=== PATIENT | female | born 1985 | race Caucasian/White ===

== ENCOUNTER 2023-11-26 05:53 | Day surgery (SDC) | payer OTHER ==
[2023-11-25 09:56] VITALS: BMI 31.4
[2023-11-26] MEDS ORDERED: Midazolam HCl 2 mg/2 ml Vial ONE (06:55)
[2023-11-26] MEDS ORDERED: PROPOFOL 60 ML ONE (06:55)
== END 2023-11-26 08:30 | disposition home or self-care (01) ==
LOC: CSHSDC 05:53
PROVIDERS: ATTEND Internal Medicine Gastroenterology
PROC: 0DJD8ZZ Inspection of Lower Intestinal Tract, Via Natural or Artificial Opening Endoscopic (ICD-10-PCS; principal; 2023-11-26)
DX: K64.9 Unspecified hemorrhoids (principal); K92.1 Melena; R19.7 Diarrhea, unspecified; I10 Essential (primary) hypertension; E66.9 Obesity, unspecified; Z68.31 Body mass index [BMI] 31.0-31.9, adult; Z88.5 Allergy status to narcotic agent; Z98.84 Bariatric surgery status
CPT/HCPCS: J2250; J2704

== ENCOUNTER 2025-04-20 08:03 | Outpatient (CLI) | payer OTHER | END 2025-04-20 08:04 | disposition home or self-care (01) | LOC: CSHWCC 08:03 | PROVIDERS: ATTEND Nurse Practitioner Family | DX: T81.328D Disruption or dehiscence of closure of other specified internal operation (surgical) wound, subsequent encounter (principal); S31.105S Unspecified open wound of abdominal wall, periumbilic region without penetration into peritoneal cavity, sequela; D56.3 Thalassemia minor | CPT/HCPCS: 17250; 99213; G0463 ==